=== PATIENT | male | born 1960 | race Caucasian/White ===

== ENCOUNTER 2016-06-19 11:53 | Emergency (ER) | payer OTHER ==
[~2016-06-19] VITALS: Ht 165.1 cm; Wt 64.7 kg
[2016-06-19 11:57] VITALS: BP 147/99; PULSE 89; RESP 15; TEMP 97.3; O2SAT 100
--- NOTE | 2016-06-19 12:21 | PD ---
HPI Chief Complaint: Injury Time Seen by Provider: 12:10 Travel History International Travel<30 days: No Contact w/Intl Traveler<30days: No Traveled to known affect area: No History of Present Illness HPI 55-year-old male presents to the emergency room for evaluation of right knee pain and swelling for the past 2 weeks. Patient states 2 weeks ago he stepped off a trailer twisting his knee. He states it "popped out"and it took him 4 "hits" to put back in place. Patient cannot describe exactly what part of his knee popped out of place. He has had extreme pain since then. Pain is localized to the posterior aspect. He has not come in before now hoping that it would improve. Pain is worse with ambulation and range of motion. States it feels unstable. He has been taking Aleve, using a brace, applying ice, and applying topical pain medication without significant relief in symptoms. He denies lower extremity paresthesias. Denies medical conditions are daily medications. PFSH Past Medical History Medical History: Denies Significant Hx Tetanus Vaccination: Unknown Influenza Vaccination: No ?: Not Past Surgical History Tonsillectomy: Yes Social History Alcohol Use: Yes Tobacco Use: Yes (3 PPD) Substance Use: No Allergies-Medications (Allergen,Severity, Reaction): Coded Allergies: No Known Allergies (Unverified , 06/19/16) Reported Meds & Prescriptions Reported Meds & Active Scripts Active No Active Prescriptions or Reported Medications Review of Systems Except as stated in HPI: all other systems reviewed are Neg Physical Exam Narrative GENERAL: Well-nourished, well-developed male in no acute distress. Ambulatory with a limp. Knee brace in place. SKIN: Focused skin assessment warm/dry. No erythema or ecchymosis. HEAD: Normocephalic. EYES: No scleral icterus. No injection or drainage. NECK: Supple, trachea midline. No JVD or lymphadenopathy. CARDIOVASCULAR: Regular rate and rhythm without murmurs, gallops, or rubs. RESPIRATORY: Breath sounds equal bilaterally. No accessory muscle use. EXTREMITY: Right knee is mildly tender to palpation. Patient can flex to approximately 50 and has extreme pain with full extension. Obvious moderate sized effusion. 2+ dorsalis pedis pulse. Negative valgus and varus stress test. Negative posterior and anterior drawer test. Data Data Last Documented VS Vital Signs Date Time Temp Pulse Resp B/P Pulse Ox O2 Delivery O2 Flow Rate FiO2 06/19/16 11:57 97.3 89 15 147/99 100 Orders Knee, Complete (4vws) (06/19/16 ) [facility] Medical Decision Making Medical Screen Exam Complete: Yes Emergency Medical Condition: Yes Medical Record Reviewed: Yes Differential Diagnosis Effusion versus fracture versus contusion versus sprain versus strain Narrative Course 55-year-old male presents to the emergency room for evaluation of right knee pain and swelling for the past 2 weeks. Patient twisted his knee 2 weeks ago and it has not felt stable since. He has been ambulatory with a limp and a brace. Physical exam reveals obvious moderate-sized effusion. Right lower extremity is neurovascularly intact. No significant tenderness to palpation. Negative varus and valgus stress test. Negative anterior and posterior drawer test. Limited range of motion secondary to pain. X-ray shows joint effusion without underlying fracture. Patient placed in knee immobilizer. Patient was informed that he will need an outpatient MRI to evaluate for ligament injury. He was told to follow up with his primary care physician for referral to orthopedist or return to the emergency rooms for concerning symptoms. He understands and agrees to this plan. Diagnosis Primary Impression: Effusion of right knee Referrals: Orthopaedic Surgeon Primary Care Physician Patient Instructions: General Instructions, Knee Sprain (ED) Additional Instructions: Rest and drink plenty of fluids. Use splint for pain and stability. Take ibuprofen with food as directed, as needed for pain. Apply ice to the affected area for 20 minutes at a time, as needed for pain and swelling. Follow-up with a primary care physician for outpatient MRI. Return to the emergency room for worsening symptoms. Med/Other Pt SpecificInfo: Prescription(s) given, Orthopedic Instructions Scripts No Active Prescriptions or Reported Meds Disposition: 01 DISCHARGE HOME Condition: Stable Alessandra Varela June 19, 2016 12:21
--- NOTE | 2016-06-19 12:37 | RADHPO ---
EXAM DATE/TIME: 06/19/2016 12:22 [facility] COMPARISON: No previous studies available for comparison. INDICATIONS : Fell, right knee pain, feels like it moves out of place MEDICAL HISTORY : None. SURGICAL HISTORY : None. ENCOUNTER: Initial ACUITY: 1 month PAIN SCORE: 8/10 LOCATION: Right knee FINDINGS: Four view examination of the right knee demonstrates no evidence of fracture or dislocation. Bony mi neralization is normal. The articular surfaces are intact. There is fullness in the suprapatellar bu rsa region consistent with a joint effusion. CONCLUSION: Evidence of joint effusion with no underlying bony abnormality. Adán Jackson MD on June 19, 2016 at 12:34 Board Certified Radiologist. This report was verified electronically.
== END 2016-06-19 12:52 | disposition home or self-care (01) ==
LOC: PHEFT 11:53
DX: M25.461 Effusion, right knee (principal); F17.210 Nicotine dependence, cigarettes, uncomplicated
CPT/HCPCS: 73564; 99283; L1830